=== PATIENT | female | born 1990 | race Caucasian/White ===

== ENCOUNTER 2018-04-11 13:56 | Inpatient (IN) ==
[2018-04-11] MEDS ORDERED: PITOCIN ONE (14:05)
[2018-04-11] MEDS ORDERED: LR 1,000 ML ONE (14:05)
[2018-04-11] MEDS ORDERED: PITOCIN 30 UNITS/NS 30 UNIT/500 ML IV.SOLN ONE (14:05)
[2018-04-11] MEDS ORDERED: PEPCID IV PRN (14:35)
[2018-04-11] MEDS ORDERED: ZOFRAN IV PRN (14:35)
[2018-04-11] MEDS ORDERED: PEPCID PO PRN (14:35)
[2018-04-11] MEDS ORDERED: REGLAN PO ONE (14:35)
[2018-04-11] MEDS ORDERED: TYLENOL PO PRN (14:35)
[2018-04-11] MEDS ORDERED: PEPCID PO ONE (14:35)
[2018-04-11] MEDS ORDERED: STADOL IV PRN (14:35)
[2018-04-11] MEDS ORDERED: KEFZOL 1 GM/D5W 1 GM/50 ML IVPB IV PRN (14:35)
[2018-04-11] MEDS ORDERED: LR 1,000 ML IV SCH (14:45)
[2018-04-11] MEDS ORDERED: SODIUM CHLORIDE 0.9% INJ SCH (14:45)
[2018-04-11] MEDS ORDERED: PITOCIN 30 UNITS/NS 30 UNIT/500 ML IV.SOLN IV SCH ×2 (14:45→15:00)
[2018-04-11 14:50] LABS: BASO# 0.05 X1000 (0.0-0.2); BASO% 0.4 % (0.0-0.8); EOS# 1.16 X1000 (0.0-0.7); EOS% 10.4 % (0.0-10.0); HEMATOCRIT 32.3 % (37.0-47.0); IMM GRAN# 0.02 X1000 (0.0-0.04); IMM GRAN% 0.2 % (0.0-0.5); LYMPH# 1.86 X1000 (1.2-3.4); LYMPH% 16.7 % (20.5-51.1); MCV 83.9 FL (81-99); MONO# 0.73 X1000 (0.11-0.59); MONO% 6.5 % (1.7-9.3); MPV 11.1 FL (7.4-10.4); NEUT# 7.34 X1000 (1.4-6.5); NEUT% 65.8 % (42.2-75.2); PLT 210 X1000 (130-400); RBC 3.85 XMIL (4.2-5.4); RDW 14.4 % (11.5-14.5); WBC 11.16 X1000 (4.8-10.8)
[2018-04-11] MEDS ORDERED: PITOCIN IM PRN (14:53)
[2018-04-11] MEDS ORDERED: BENADRYL IV PRN (14:53)
[2018-04-11] MEDS ORDERED: BOOSTRIX VACCINE IM ONE (14:53)
[2018-04-11] MEDS ORDERED: ATARAX PO PRN (14:53)
[2018-04-11] MEDS ORDERED: M-M-R II VACCINE SUBQ ONE (14:53)
[2018-04-11] MEDS ORDERED: PERI MEDS (DERMOPLAST/NUPERCAINAL/TUCKS) MISC PRN (14:53)
[2018-04-11] MEDS ORDERED: HYDROXYZINE IM PRN (14:53)
[2018-04-11] MEDS ORDERED: CYTOTEC PO PRN (14:53)
[2018-04-11] MEDS ORDERED: BENADRYL PO PRN (14:53)
[2018-04-11] MEDS ORDERED: XYLOCAINE-MPF 1% INJ PRN (14:53)
[2018-04-11] MEDS ORDERED: PITOCIN 20 UNITS/NS 20 UNITS/1,000 ML IV.SOLN IV SCH (15:00)
--- NOTE | 2018-04-11 15:33 | HISTORY AND PHYSICAL ---
CHIEF COMPLAINT: Labor. HISTORY OF PRESENT ILLNESS: The patient is a 28-year-old G2, P1, female with EDC of 05/01/2018 placing her at approximately 37 weeks and 2 days gestation. She has received care from Dr. Zee in [place] and arrived by EMS squad at approximately 1:55 p.m. She had rupture of membranes at 1:15 p.m. She states that she has been tamera since this morning and contractions have gotten stronger since the rupture of membranes. On arrival to Labor and Delivery she was found to be complete and approximately +1 to +2 station grossly ruptured. GBS culture was obtained as no records were available during the triage. Subsequently Dr. Zee's office was contacted and patient was GBS positive. She did not receive any antibiotics as she came in ruptured and delivered very promptly. PAST MEDICAL HISTORY: 1. History of poly drug use, patient states last drug use was in 2015. She was in a program but did it "mostly on my own," 2. History of seizures diagnosed at 25 years of age for which she takes Klonopin to control. "Nothing else worked" per patient. MEDICATIONS: 1. vitamins 2. Klonopin 1 mg t.i.d. This was verified with Dr. Zee's office. 3. Upon questioning for drug use patient has been taking Subutex during but not scheduled "just as needed." She states that her last Subutex use was 2 weeks ago or more. States gets her Subutex she states from the [facility] in [place]. Upon talking with Dr. Zee's office Subutex is not amongst their medications listed and they were not aware she was taking Subutex. SURGICAL HISTORY: 1. [place] teeth 2. Right eye vascular birthmark removed. ALLERGIES: Zofran, Soma and nifedipine. She denies any Protonix allergy. SOCIAL HISTORY: The patient states that she smokes E cigarettes. She denies alcohol use during . She denies illicit drug use during but per report records from Dr. Zee's office history of THC positive and per patient's own report states has taken Subutex during "as needed." THERAPIST RADIATION HISTORY: G2, P1 status post spontaneous vaginal delivery 04/04/2014 of a male 4 pounds 6 ounces. States she delivered 5 weeks early at 35 weeks gestation. Patient denies [place] or progesterone injections for the . Patient is O-positive. PHYSICAL EXAM: . GENERAL: Alert and oriented x3. Breathing through contractions and having discomfort but able to stay in control. CARDIOVASCULAR: Regular rate and rhythm. LUNGS: Clear to auscultation bilaterally. ABDOMEN: Bowel sounds present. Soft, nondistended, nontender. No rebound or guarding. Gravid uterus, nontender and soft on palpation tamera approximately every 3 minutes. heart tones reactive and reassuring. Patient was not on monitoring for very long prior to delivery. PELVIC: Complete, +1 to +2, cephalic presentation, grossly ruptured. EXTREMITIES: No calf pain, no edema. LAB WORK: All pending at present time. ASSESSMENT: A 28-year-old G2, P1 at 37 weeks and 2 days gestation arrival to labor and delivery ruptured and complete. PLAN: 1. Expecting spontaneous vaginal delivery imminent. 2. Nursery present in room. cc: Myriam Gutiérrez MD MTDD
--- NOTE | 2018-04-11 15:48 | OPERATIVE NOTE ---
PROCEDURE DATE: 04/11/2018 DATE OF DELIVERY: 04/11/2018 DELIVERY SUMMARY: Patient is a 28-year-old G 2, P 1, female, who presents at 37 weeks and 2 days gestation. She has received care from Dr. Rehman in [place], and she is visiting her partner who lives here in [place]. She had spontaneous rupture of membranes at 1:15 p.m. and arrived by EMS squad to [facility] at 1:55 p.m. She states that her contractions had started earlier in the morning, progressively had gotten stronger. On arrival to Labor and Delivery and check, she was found to be complete and +1 to +2 on arrival, grossly ruptured. GBS culture was obtained as no records were available on arrival. Nurses worked on getting information and records from Dr. Rehman's office. GBS status is positive, and she is O positive. So after arrival at 1:55 p.m. and check at 2 p.m. for which she was found to be complete +1 to +2, she underwent a spontaneous vaginal delivery at 2:16 p.m. vertex, DAVID position, male , 7 pounds 3 ounces, 9 and 9 Apgars at one and five minutes respectively. Male infant "Cristi." heart tones were reactive and reassuring prior to delivery. Post delivery infant was laid upon mother's abdomen approximately 1 minute delay in cord clamping occurred. Cord was clamped and cut. remained with mother with nursery at bedside. The placenta then delivered spontaneously at 2:20 p.m. with gentle downward traction and uterine massage, IV Pitocin was initiated with delivery of the placenta. The uterus was explored. There were no retained products of conception palpated. The placental disk was explored and appeared to be grossly intact. EBL was estimated at approximately 150 mL. There were no tears present and no lacerations. The uterus was firm post delivery, and both mother and baby were doing well. The patient has a history of polypharmacy drug abuse per her own statement. She states she has been clean since 2016, went through a program, but did it mostly "on my own." Medications reported were vitamins and Klonopin and denied any other drug use, but upon subsequent asking, she has been taking Subutex during the , but not scheduled, "only as needed." She states that she gets her Subutex through the [facility] in [place]. There are no records of this. Dr. Rehman's office has no record of this and did not know that she was on Subutex. It is not part of her record. The patient states her last Subutex was 2 weeks ago "or more." Per her other records for which she had only had [address] Rehman and is reported as THC positive during as well. I will obtain a Tire Tester consult due to the questionable nature of p.r.n. Subutex use, which was not reported to her biological photographer's office, as well as history of polypharmacy drug abuse. cc: Myriam Gutiérrez MD
[2018-04-11] MEDS: KLONOPIN PO SCH (16:57)
[2018-04-11] MEDS: MOTRIN PO PRN (17:45)
[2018-04-11 18:25] LABS: URINE SOURCE VOIDED
[2018-04-11 18:46] LABS: BILIRUBIN URINE NEGATIVE (NEGATIVE); BLOOD URINE 4+ (NEGATIVE); CLARITY CLEAR (CLEAR); COLOR RED; GLUCOSE URINE NEGATIVE (NEGATIVE); KETONE URINE TRACE mg/dL (NEGATIVE); LEUKOCYTES URINE 1+ (NEGATIVE); NITRITE URINE NEGATIVE (NEGATIVE); PROTEIN URINE 2+(100 mg/dL) mg/dL (NEGATIVE); SP GRAVITY URINE 1.005; UROBILINOGEN URINE NORMAL
[2018-04-11 18:54] LABS: AGAP 13; ALBUMIN 2.7 g/dL (3.5-5.0); ALKALINE PHOSPHATASE 242 U/L (32-104); BUN 17 mg/dL (8-22); CALCIUM 8.9 mg/dL (8.8-10.2); CHLORIDE 102 mmol/L (98-107); COSMO 273; CREATININE 0.8 mg/dL (0.5-0.9); ESTIMATED GFR > 60; GLUCOSE 85 mg/dL (70-104); GOT 23 U/L (10-30); GPT 12 U/L (10-36); POTASSIUM 4.6 mmol/L (3.5-5.1); SODIUM 136 mmol/L (136-145); TCO2 21 mmol/L (25-35); TOTAL PROTEIN 5.5 g/dL (6.3-8.3); URIC ACID 6.4 mg/dL (2.4-5.7)
[2018-04-11 18:55] LABS: UR AMPHETAMINES QUAL NONE DETECTED (NONE DETECT); UR BARBITUATES QUAL NONE DETECTED (NONE DETECT); UR BENZODIAZEPIN QUAL PRESUMPTIVE POSITIVE (NONE DETECT); UR COCAINE QUAL NONE DETECTED (NONE DETECT); UR METHADONE QUAL NONE DETECTED (NONE DETECT); UR METHAMPHETAMINE QUAL NONE DETECTED (NONE DETECT)
[2018-04-11 18:56] LABS: UR CANNABINOIDS QUAL NONE DETECTED (NONE DETECT); UR OPIATES QUAL NONE DETECTED (NONE DETECT); UR OXYCODONE QUAL PRESUMPTIVE POSITIVE (NONE DETECT); UR PCP QUAL NONE DETECTED (NONE DETECT); UR PROPOXYPHENE QUAL NONE DETECTED (NONE DETECT); UR TCA QUAL NONE DETECTED (NONE DETECT)
[2018-04-11] MEDS: PERICOLACE PO SCH (20:09)
[2018-04-11] MEDS: NORCO-5 PO PRN (20:09)
[2018-04-12] MEDS: NORCO-5 PO PRN ×2 (03:47→17:13)
[2018-04-12] MEDS: MOTRIN PO PRN ×3 (03:47→21:00)
--- NOTE | 2018-04-12 07:28 | OB/GYN PROGRESS NOTE ---
Progress Note OB - . OB Progress Note: Vital Signs - 24 hr 04/11/18 14:10 04/11/18 19:36 04/11/18 23:40 Temperature 97.5 F L 97.7 F 96.7 F L Pulse Rate 86 91 H 75 Respiratory Rate 22 20 18 Blood Pressure 161/89 117/72 112/71 O2 Sat by Pulse Oximetry 99 97 96 04/12/18 03:49 Temperature 97.9 F Pulse Rate 92 H Respiratory Rate 18 Blood Pressure 130/84 O2 Sat by Pulse Oximetry 99 Laboratory Results - last 24 hr 04/11/18 04/11/18 04/11/18 14:00 14:10 14:10 WBC 11.16 H RBC 3.85 L Hgb 10.0 L Hct 32.3 L MCV 83.9 MCH 26.0 L MCHC 31.0 L RDW Std Deviation 14.4 Plt Count 210 MPV 11.1 H Immature Gran % (Auto) 0.2 Neut % (Auto) 65.8 Lymph % (Auto) 16.7 L [place] % (Auto) 6.5 Eos % (Auto) 10.4 H Baso % (Auto) 0.4 Immature Gran # (Auto) 0.02 Neut # (Auto) 7.34 H Lymph # (Auto) 1.86 [place] # (Auto) 0.73 H Eos # (Auto) 1.16 H Baso # (Auto) 0.05 Sodium 136 Potassium 4.6 Chloride 102 Carbon Dioxide 21 L Anion Gap 13 BUN 17 Creatinine 0.8 Estimated GFR/1.73 m2 > 60 BUN/Creatinine Ratio 21 Glucose 85 Calculated Osmolality 273 Uric Acid 6.4 H Calcium 8.9 Total Bilirubin 0.20 AST 23 ALT 12 Alkaline Phosphatase 242 H Total Protein 5.5 L Albumin 2.7 L Globulin 3.0 Albumin/Globulin Ratio 1.0 Urine Source Urine Color Urine Clarity Urine pH Ur Specific [place] Urine Protein Urine Ketones Urine Blood Urine Nitrite Urine Bilirubin Urine Urobilinogen Urine WBC Urine Glucose Urine Opiates Screen Ur Oxycodone Screen Urine Methadone Screen U Propoxyphene Qual Ur Barbituates Screen Ur Tricyclics Screen Ur Phencyclidine Scrn Ur Amphetamines Screen U Methamphetamines Scrn U Benzodiazepines Scrn Urine Cocaine Screen U Cannabinoids Screen RPR NON-REACTIVE 04/11/18 04/11/18 17:30 17:30 WBC RBC Hgb Hct MCV MCH MCHC RDW Std Deviation Plt Count MPV Immature Gran % (Auto) Neut % (Auto) Lymph % (Auto) [place] % (Auto) Eos % (Auto) Baso % (Auto) Immature Gran # (Auto) Neut # (Auto) Lymph # (Auto) [place] # (Auto) Eos # (Auto) Baso # (Auto) Sodium Potassium Chloride Carbon Dioxide Anion Gap BUN Creatinine Estimated GFR/1.73 m2 BUN/Creatinine Ratio Glucose Calculated Osmolality Uric Acid Calcium Total Bilirubin AST ALT Alkaline Phosphatase Total Protein Albumin Globulin Albumin/Globulin Ratio Urine Source VOIDED Urine Color RED Urine Clarity CLEAR Urine pH 8.0 Ur Specific [place] 1.005 Urine Protein 2+(100 mg/dL) A Urine Ketones TRACE Urine Blood 4+ Urine Nitrite NEGATIVE Urine Bilirubin NEGATIVE Urine Urobilinogen NORMAL Urine WBC 1+ A Urine Glucose NEGATIVE Urine Opiates Screen NONE DETECTED Ur Oxycodone Screen PRESUMPTIVE POSITIVE A Urine Methadone Screen NONE DETECTED U Propoxyphene Qual NONE DETECTED Ur Barbituates Screen NONE DETECTED Ur Tricyclics Screen NONE DETECTED Ur Phencyclidine Scrn NONE DETECTED Ur Amphetamines Screen NONE DETECTED U Methamphetamines Scrn NONE DETECTED U Benzodiazepines Scrn PRESUMPTIVE POSITIVE A Urine Cocaine Screen NONE DETECTED U Cannabinoids Screen NONE DETECTED RPR S: doing well overall. Slept well last night per grandmother. Lochia minimal. Bottle feeding. C/O hip pains and that motrin and tylenol were not helping. Family somewhat upset last night per nursing that "not getting anything stronger than that." Dr. [place] ordered [place] 5/325mg po q 4 hours prn last night and she has taken 2 doses. O: VSS afebrile. BP's 110's/70's. PE: CV- RRR Resp- lungs CTA bilaterally Abd-soft, non-distended, appropriately tender. Uterus firm below umbilicus. Ext-no calf pain, no edema. Reflexes 1 + bilaterally. A: PPD#1 S/P . Poor PNC and history of drug use. 1. BP stable and normalized, somewhat labile post delivery. PIH labs ordered yesterday reviewed. Creatinine 0.8 uric acid 6.4, AST and ALT normal. Platelets 210. No PIH symptoms. Reflexes 1+ Bilaterally. Continue to monitor BP. 2. Hgb pre delivery 10.0 - CBC pending this am - coming to draw. 3. Continue PP care 4. Klonopin 1mg TID - taking. 5. on site services specialist consult - awaiting evaluation. Hx drug use and poor PNC. UDS positive for oxycodone and benzo (on Klonopin) 6. Tylenol and Motrin ordered for pain control. Was "not enough" and has taken [place] twice overnight. . No tears. Discussed with patient and grandmother no narcotic rx for home going. States hip pains. Encouraged use of Motrin and tylenol for discomfort. Discussed with patient that it will resolve. Discussed moist heat to hips as needed. Discussed stretching exercises. K-Pad offered and accepted.
[2018-04-12 08:03] LABS: HEMATOCRIT 31.7 % (37.0-47.0); HEMOGLOBIN 9.7 g/dL (12.0-16.0); MCH 26.1 PG (27-31); MCHC 30.6 g/dL (33-37); MCV 85.2 FL (81-99); RBC 3.72 XMIL (4.2-5.4); RDW 14.3 % (11.5-14.5); WBC 12.98 X1000 (4.8-10.8)
[2018-04-12] MEDS: TYLENOL PO PRN ×2 (08:52→17:09)
[2018-04-12] MEDS: KLONOPIN PO SCH ×3 (08:52→17:09)
[2018-04-12] MEDS ORDERED: FERROUS SULFATE PO SCH (09:00)
[2018-04-12] MEDS: PERICOLACE PO SCH (21:00)
[2018-04-13] MEDS: NORCO-5 PO PRN (02:22)
[2018-04-13] MEDS: MOTRIN PO PRN (04:56)
--- NOTE | 2018-04-13 07:53 | OB/GYN PROGRESS NOTE ---
Progress Note OB - . OB Progress Note: Vital Signs - 24 hr 04/12/18 12:50 04/12/18 16:08 04/12/18 19:50 Temperature 97.8 F 96.6 F L 96.8 F L Pulse Rate 69 67 69 Respiratory Rate 18 18 18 Blood Pressure 114/57 108/69 128/82 O2 Sat by Pulse Oximetry 97 98 97 04/13/18 02:23 Temperature 96.9 F L Pulse Rate 64 Respiratory Rate 18 Blood Pressure 131/69 O2 Sat by Pulse Oximetry 100 Laboratory Results - last 24 hr 04/12/18 07:51 WBC 12.98 H RBC 3.72 L Hgb 9.7 L Hct 31.7 L MCV 85.2 MCH 26.1 L MCHC 30.6 L RDW Std Deviation 14.3 Plt Count 182 MPV 11.0 H S: doing well overall. Lochia minimal. Bottle feeding. K-Pad helped "a little " with hip pains. Ambulating and voiding without difficulty. No Nausea or vomiting. NO CP or SOB. No vision changes. No RUQ abdominal pain. O: VSS afebrile. BP's stable 114/57, 108/69, 128/82, 131/69 last recorded BP's PE: CV- RRR Resp- lungs CTA bilaterally Abd-soft, non-distended, appropriately tender. Uterus firm below umbilicus. Ext-no calf pain, no edema. Reflexes 1 + bilaterally. A: PPD#2 S/P . Poor PNC and history of drug use. 1. BP stable - somewhat labile post delivery. Recommend BP check in office on Tuesday. Will be scheduled by nurse. 2. Hgb pre delivery 10.0, hgb 9.7 post delivery. Discussed iron once daily. States "have some iron at home." No rx given. 3. Klonopin 1mg TID - to follow up with prescribing physician for any refills or changes in medications. 4. loan services professional consult - [facility] will be seeing patient today prior to discharge. Hx drug use and poor PNC. UDS positive for oxycodone and benzo (on Klonopin) 5. PP check discussed with patient to schedule post Tuesday BP check for next 2- 6 weeks based upon need. Has history of anxiety. Discussed about PP depression and symptoms. Denies any PP depression at present. 6. NO sex for 6 weeks and discussed with patient control prior to sex if not wanting to conceive right away. States will talk with her OB about control No heavy lifting 15# or less for 4-6 weeks and then gradual increase in weight ok. No driving for 2 weeks or pain free. Should not drive if taking pain medications. Also discussed seizure history and use of Klonopin and to maintain any driving restrictions for that as well. 7. OTC Tylenol 1000mg po q 6 hours p.r.n. and OTC Motrin 600mg po q 6 hours p.r.n. for pain control. Can stagger doses. Discussed moist heat/heating pad prn to hips as needed. Being careful to avoid bower which are possible if too long or on bare skin. States understanding. Discussed stretching exercises.
[2018-04-13 09:21] VITALS: BP 141/88
--- NOTE | 2018-04-13 16:27 | DISCHARGE SUMMARY ---
ADMISSION DATE: 04/11/2018 DISCHARGE DATE: 04/13/2018 PRINCIPAL DIAGNOSIS: Onset labor at term, status post spontaneous vaginal delivery. ADDITIONAL DIAGNOSIS: History of polypharmacy drug use and poor care. DISCHARGE SUMMARY: Patient is a 28-year-old G2, now P2 female status post spontaneous vaginal delivery on 04/11/2018. She was visiting the area to be with her boyfriend and had received care in [place]; however, that is only recorded as 4 visits. She arrived to Labor and Delivery by EMS after her water had broke and on arrival to Labor and Delivery she was found to be complete and +1 to +2 station. She underwent spontaneous vaginal delivery on of a male infant, Apgars were 9 and 9. Her post course has been relatively unremarkable. She has had some labile pressures that have been watched. Blood pressures overnight prior to discharge were 114/57 and 108/69, but she has had several blood pressures in the 140s to 150s/80s to 90s. At time of discharge, blood pressure is stable at 131/69. She has been afebrile throughout her hospital course. Pre-delivery hemoglobin was 10.0, post delivery hemoglobin was 9.7. Pulse is been running in the 60s. She has no chest pain or shortness of breath. No lightheadedness or dizziness. She has not had any headaches or vision changes. No right upper quadrant pain. She has no edema on exam and reflexes are 1+ bilaterally. The patient had use of Subutex during per her own account that was p.r.n. use. The last use on this admit patient states was 2 weeks prior or more. She does take Klonopin 1 mg t.i.d. that was recorded through her manager employment's office, as well. She takes the Klonopin for a history of seizures. She also states she has anxiety disorder. I discussed at length with patient depression. The patient denies any symptoms at present time. I discussed that if she feels that she is having any depression issues, she should be calling her manager employment to be seen sooner. I will have patient follow up with her manager employment on Tuesday for a blood pressure check, which is approximately 4 days from now, and to call if any problems sooner. exam to be scheduled through her manager employment's office and should be seen within the next 2 to 6 weeks for her visit, depending on plan of care. Discharge instructions were discussed, including no intercourse for 6 weeks. I discussed with patient obtaining control through her manager employment's office if not desiring conception and she will discuss control options with her OB. I discussed no heavy lifting for approximately 4 to 6 weeks with gradual increase in lifting after that, and advise no driving for 2 weeks or pain free. She should not be taking any pain medications and driving. I also discussed with patient that being on the Klonopin with a seizure disorder that she needs to follow any restrictions for driving in regards to that. She is to continue her Klonopin 1 mg t.i.d. and follow up with her doctors that prescribe that to see if any changes are needed or necessary and for any refills. Continue vitamin daily. She states that she does have iron at home, so she will be taking the iron that she has at home 1 pill a day with some food or orange juice. No prescription given. Over-the- counter use of Motrin and Tylenol were discussed, including 1000 mg of Tylenol every 6 hours as needed and Motrin 600 mg [id number] every 6 hours as needed. She can stagger or space these as needed for discomfort. She was having some hip pain post delivery that moist heat with heating pad did help slightly per patient, and I discussed that she can continue with heat and stretching to her hips and lower back as needed. She is tolerating p.o. and ambulating and voiding without difficulty upon discharge. Major Case Detective from [facility] are due to visit patient today prior to discharge. Patient states understanding for social worker aide consult. cc: Myriam Gutiérrez MD MTDD
== END 2018-04-13 08:48 | disposition left against medical advice (07) | DRG 807 ==
LOC: P.OPLD 13:56 → P.LD 13:57
PROVIDERS: ADMIT Obstetrics & Gynecology; ATTEND Obstetrics & Gynecology
CPT/HCPCS: 80053; 80104; 80301; 80305; 81003; 84550; 85025; 85027; 86592; A9270; G0431; G0434; G0477; J2590; J7120